=== PATIENT | male | born 1995 | race African-American/Black ===

== ENCOUNTER 2021-02-26 22:15 | Emergency (ER) | payer OTHER, SELFPAY ==
[2021-02-26 22:28] VITALS: PULSE 86; RESP 16; TEMP 36.8; O2SAT 100; BMI 43.4
[2021-02-26 22:59] VITALS: BP 150/90; PULSE 101; O2SAT 98
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
[2021-02-26] MEDS: Ibuprofen 800 MG TABLET PO (23:22)
--- NOTE | 2021-02-26 23:28 | PC.NURSE ---
PT ASSESSED BY DR. ELLER HARD COLLAR REMOVED BY DR ELLER.
== END 2021-02-26 23:30 | disposition home or self-care (01) ==
PROVIDERS: Emergency Provider Internal Medicine; PCP Physician Assistant
DX: S16.1XXA Strain of muscle, fascia and tendon at neck level, initial encounter (principal); M54.2 Cervicalgia; V43.52XA Car driver injured in collision with other type car in traffic accident, initial encounter; Y93.9 Activity, unspecified; Y92.410 Unspecified street and highway as the place of occurrence of the external cause; Y99.9 Unspecified external cause status
CPT/HCPCS: 99284

== ENCOUNTER 2021-03-05 10:34 | Outpatient (REF) | payer OTHER, SELFPAY ==
--- NOTE | ~2021-03-05 | XR_ITS ---
EXAMINATION: CERVICAL, THORACIC AND LUMBAR SPINE. CLINICAL INFORMATION: Diffuse back pain. COMPARISON: None TECHNIQUE: Lumbar spine 3 views. Dorsal spine 2 views. Cervical spine 3 views. FINDINGS: Lumbar spine: There is normal lumbar lordosis. The vertebral heights, alignment and disc heights are normal. No visible acute fracture, dislocation or subluxation seen. No lytic or sclerotic process. Dorsal spine: There is maintained thoracic kyphosis. The vertebral heights and alignment is normal. No visible acute fracture, dislocation or lytic process seen. The paravertebral soft tissues are normal. Cervical spine: There is normal cervical lordosis. The vertebral heights, alignment and disc heights are normal. No visible acute fracture, dislocation or lytic process seen. The prevertebral soft tissues are normal. XR/XR cervical spine 3V IMPRESSION: Unremarkable lumbar spine exam. Unremarkable dorsal spine exam Unremarkable cervical spine exam.
--- NOTE | ~2021-03-05 | XR_ITS ---
EXAMINATION: CERVICAL, THORACIC AND LUMBAR SPINE. CLINICAL INFORMATION: Diffuse back pain. COMPARISON: None TECHNIQUE: Lumbar spine 3 views. Dorsal spine 2 views. Cervical spine 3 views. FINDINGS: Lumbar spine: There is normal lumbar lordosis. The vertebral heights, alignment and disc heights are normal. No visible acute fracture, dislocation or subluxation seen. No lytic or sclerotic process. Dorsal spine: There is maintained thoracic kyphosis. The vertebral heights and alignment is normal. No visible acute fracture, dislocation or lytic process seen. The paravertebral soft tissues are normal. Cervical spine: There is normal cervical lordosis. The vertebral heights, alignment and disc heights are normal. No visible acute fracture, dislocation or lytic process seen. The prevertebral soft tissues are normal. XR/XR lumbar spine 2-3V IMPRESSION: Unremarkable lumbar spine exam. Unremarkable dorsal spine exam Unremarkable cervical spine exam.
--- NOTE | ~2021-03-05 | XR_ITS ---
EXAMINATION: CERVICAL, THORACIC AND LUMBAR SPINE. CLINICAL INFORMATION: Diffuse back pain. COMPARISON: None TECHNIQUE: Lumbar spine 3 views. Dorsal spine 2 views. Cervical spine 3 views. FINDINGS: Lumbar spine: There is normal lumbar lordosis. The vertebral heights, alignment and disc heights are normal. No visible acute fracture, dislocation or subluxation seen. No lytic or sclerotic process. Dorsal spine: There is maintained thoracic kyphosis. The vertebral heights and alignment is normal. No visible acute fracture, dislocation or lytic process seen. The paravertebral soft tissues are normal. Cervical spine: There is normal cervical lordosis. The vertebral heights, alignment and disc heights are normal. No visible acute fracture, dislocation or lytic process seen. The prevertebral soft tissues are normal. XR/XR thoracic spine 3V IMPRESSION: Unremarkable lumbar spine exam. Unremarkable dorsal spine exam Unremarkable cervical spine exam.
== END 2021-03-05 10:35 | disposition home or self-care (01) ==
LOC: HO.XRAY 10:34
PROVIDERS: PCP Physician Assistant; Visit Provider Chiropractor
DX: M99.01 Segmental and somatic dysfunction of cervical region (principal); M99.03 Segmental and somatic dysfunction of lumbar region
CPT/HCPCS: 72040; 72072; 72100

== ENCOUNTER 2022-12-29 12:09 | Emergency (ER) | payer OTHER, SELFPAY ==
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
[2022-12-29 12:39] VITALS: BP 121/71; PULSE 58; RESP 18; TEMP 36.7; O2SAT 97; BMI 40.4
[2022-12-29] MEDS: Cyclobenzaprine HCl 5 MG TABLET PO (15:07)
[2022-12-29] MEDS: Ketorolac Tromethamine 15 MG/ML VIAL IM (15:08)
== END 2022-12-29 15:14 | disposition home or self-care (01) ==
PROVIDERS: Emergency Provider Emergency Medicine
DX: S39.012A Strain of muscle, fascia and tendon of lower back, initial encounter (principal); R51.9 Headache, unspecified; M54.2 Cervicalgia; V43.62XA Car passenger injured in collision with other type car in traffic accident, initial encounter; Y93.9 Activity, unspecified; Y92.410 Unspecified street and highway as the place of occurrence of the external cause; Y99.9 Unspecified external cause status; Z79.899 Other long term (current) drug therapy
CPT/HCPCS: 70450; 96372; 99283; 99284; J1885

== ENCOUNTER 2023-02-16 00:41 | Emergency (ER) | payer OTHER, SELFPAY ==
--- NOTE | 2023-02-16 | ECG_ITS ---
Test Reason : CHESTPAIN Blood Pressure : / mmHG Vent. Rate : 054 BPM Atrial Rate : 054 BPM P-R Int : 146 ms QRS Dur : 092 ms QT Int : 386 ms P-R-T Axes : 054 038 022 degrees QTc Int : 366 ms Sinus bradycardia Otherwise normal ECG When compared with ECG of 14-DEC-2019 20:27, Vent. rate has decreased BY 39 BPM QT has shortened Referred By: Generic ED Physician Electronically Signed By:DORINA SMITH
--- NOTE | ~2023-02-16 | XR_ITS ---
EXAMINATION: XR CHEST CLINICAL INFORMATION: Chest pain COMPARISON: 12/14/2019 TECHNIQUE: Frontal view of the chest was obtained. FINDINGS: The lungs are clear with no focal consolidation. No evidence of pneumothorax, pulmonary edema, or pleural effusions. The cardiomediastinal silhouette is unremarkable. No acute osseous findings. XR/XR chest 1V IMPRESSION: No acute cardiopulmonary findings.
[2023-02-16 00:45] VITALS: BP 128/78; PULSE 79; RESP 20; TEMP 36.8; O2SAT 96; BMI 39.3
[2023-02-16 01:08] VITALS: BP 131/69; PULSE 67; RESP 17; TEMP 36.8; O2SAT 97
--- NOTE | 2023-02-16 01:12 | ED.CHESTPAIN ---
HPI - Chest Pain General Chief Complaint: Chest Pain Stated Complaint: heart/chest pain Time Seen by Provider: 02/16/23 01:11 Source: patient Mode of arrival: ambulatory History of Present Illness HPI narrative: 27-year-old male who presents with transient left chest pulse a iqbal all smoking marijuana and eating sandwich. Patient states that that sensation has resolved and was not associated with any shortness of breath/dizziness/nausea. Related Data Previous Rx's Medication Instructions Recorded ibuprofen 600 mg tablet 600 mg PO Q6H PRN pain #20 tabs 02/26/21 cyclobenzaprine 5 mg tablet 5 mg PO TID PRN muscle spasm 7 12/29/22 days #21 tabs naproxen 500 mg tablet 500 mg PO BID 7 days #14 tabs 12/29/22 Allergies Allergy/AdvReac Type Severity Reaction Status Date / Time SEASONAL ALLERGIES Allergy Intermediate UNKNOWN Uncoded 12/29/22 12:41 Review of Systems Review of Systems: Pertinent positives and negatives as stated in HPI [facility] Past Medical History Source: nursing notes reviewed Social History Social History Use of substances other than those prescribed or required for medical reasons: Yes Substance Use Type: Marijuana Substance Use Frequency: Daily Physical Exam Vital Signs: Vital Signs: Last Vital Signs Temp 98.2 F 02/16/23 01:08 Pulse 67 02/16/23 01:08 Resp 17 02/16/23 01:08 BP 131/69 02/16/23 01:08 Pulse Ox 97 02/16/23 01:08 O2 Del Method Room Air 02/16/23 01:08 BMI result Body Mass Index 39.3 VITAL SIGNS: Reviewed. GENERAL: Well developed, well nourished, in no acute distress. HEAD: Normocephalic/atraumatic EYES: PERRLA, EOMI EARS: Ext canals without abnormality NOSE: Nares patent bilateral OROPHARYNX: no oral lesions noted, posterior pharynx clear NECK: Supple, no adenopathy LUNGS: Normal breath sounds. No adventitious sounds or accessory muscle use. SpO2<97> CARDIOVASCULAR: Regular rate and rhythm without noted murmurs ABDOMEN: Soft, non-tender, non-distended with bowel sounds. MUSCULOSKELETAL: No tenderness, deformities, or effusions noted on gross inspection. EXTREMITIES: No cyanosis, clubbing or edema. SKIN: Inspection of the skin reveals no rashes NEUROLOGIC: Alert and oriented x 4. Strength and sensation to light touch were grossly intact x 4. Medical Decision Making Medical Decision Making [facility] Narrative: 27-year-old male with history and clinical presentation, DDX: Musculoskeletal, low clinical suspicion for primary ACS/pneumothorax/pneumonia and no evidence to suggest acid reflux. Suspect that this was related with social activity of marijuana smoking. I reviewed all investigations and hematologic indices are without leukocytosis or left shift, there is no anemia or thrombocytopenia. Chemistry indices are negative for FARIBA your electrolytes/liver enzyme abnormalities and high sensitivity troponin is undetectable. Chest x-ray without infiltrate and otherwise my interpretation is in agreement with radiology's impression. On EKG there is a sinus bradycardia without ischemic changes. My interpretation is this may have been associated with patient's inhalation of the marijuana in there are no acute findings to suggest pneumonia/pneumothorax/ischemic cardiac etiology. He is otherwise discharged. Differential Diagnosis Differential Diagnoses: The differential diagnosis associated with the presentation includes Please see the discussion above Admission/Observation Consideration of admission/observation: Escalation of care including admission/observation considered Please see the discussion above Lab Data [facility] Lab Attestation statement: I reviewed the patient's lab results. Please see the discussion above 02/16/23 01:46 02/16/23 01:46 Labs: Lab Results 02/16/23 Range/Units 01:46 WBC 7.1 (4.8-10.8) X10*3/uL RBC 4.76 (4.60-5.80) X10*6/uL Hgb 15.2 (14.0-18.0) g/dl Hct 42.8 (42.0-52.0) % MCV 89.9 (80.0-98.0) fL MCH 31.9 (27.0-33.0) pg MCHC 35.5 (31.0-36.0) g/dl RDW 11.1 (11.0-16.0) % Plt Count 257 (160-400) X10*3/uL MPV 9.3 L (9.4-12.4) fL Absolute Nucleated RBC 0.000 (0.0-0.012) X10*3/uL Nucleated RBC % (auto) 0.0 (0.0-0.2) /100WBC Sodium 138 (135-145) mmol/L Potassium 3.3 (3.3-5.1) mmol/L Chloride 108 (96-108) mmol/L Carbon Dioxide 21 L (22-29) mmol/L Anion Gap 12 (12-20) BUN 9 (9-16) mg/dL Creatinine 0.76 (0.5-1.4) mg/dL Estim Creat Clear Calc 202.9 Estimated GFR > 60 Random Glucose 126 H (60-115) mg/dL Calcium 9.4 (8.4-10.2) mg/dL Total Bilirubin 0.7 (0.0-1.0) mg/dL AST 16 (5-37) U/L ALT 27 (0-40) U/L Alkaline Phosphatase 83 (39-117) U/L Troponin I High Sens < 2.7 (<3.5-35.0) ng/L Total Protein 7.2 (6.5-8.0) g/dL Albumin 4.0 (3.5-5.0) g/dL Independent Interpretation I performed an independent interpretation of an: EKG Interpretation: Sinus bradycardia, HR-54, no STEMI, SC/QRS/QTC is within normal limits. Radiology Impression Discussion of test interpretation with radiology: I have reviewed the radiologist's reading. Radiologist Impression: Please see the discussion above External Record Review External record reviewed: Outpatient record, Prior outpatient labs and Prior outpatient radiology Discharge Plan Discharge Clinical Impression: Atypical chest pain Patient Disposition: Home, Self-Care Instructions: Noncardiac Chest Pain (ED) Additional Instructions: Return to the ER for any worsening of symptoms. Prescriptions: No Action ibuprofen 600 mg tablet 600 mg PO Q6H PRN (Reason: pain) Qty: 20 0RF naproxen 500 mg tablet 500 mg PO BID 7 Days Qty: 14 0RF cyclobenzaprine 5 mg tablet 5 mg PO TID PRN (Reason: muscle spasm) 7 Days Qty: 21 0RF
[2023-02-16 01:53] LABS: Hematocrit 42.8 % (42.0-52.0); Hemoglobin 15.2 g/dl (14.0-18.0); Mean Corpuscular HGB Conc 35.5 g/dl (31.0-36.0); Mean Corpuscular Hemoglobin 31.9 pg (27.0-33.0); Mean Corpuscular Volume 89.9 fL (80.0-98.0); Mean Platelet Volume 9.3 fL (9.4-12.4); Platelet Count 257 X10*3/uL (160-400); Red Blood Count 4.76 X10*6/uL (4.60-5.80); Red Cell Distribution Width 11.1 % (11.0-16.0); White Blood Count 7.1 X10*3/uL (4.8-10.8)
[2023-02-16 02:18] LABS: Troponin-I High Sensitivity < 2.7 ng/L (<3.5-35.0)
[2023-02-16 02:32] LABS: Alanine Aminotransferase 27 U/L (0-40); Alkaline Phosphatase 83 U/L (39-117); Anion Gap 12 (12-20); Aspartate Amino Transferase 16 U/L (5-37); Bilirubin Total 0.7 mg/dL (0.0-1.0); Blood Urea Nitrogen 9 mg/dL (9-16); Calcium 9.4 mg/dL (8.4-10.2); Carbon Dioxide 21 mmol/L (22-29); Chloride 108 mmol/L (96-108); Creatinine Clr Calc Pharmacy 202.9; Estimated Glomerular Filt Rate > 60; Glucose Random 126 mg/dL (60-115); Potassium 3.3 mmol/L (3.3-5.1); Sodium 138 mmol/L (135-145); Total Protein 7.2 g/dL (6.5-8.0)
--- NOTE | 2023-02-16 03:23 | PC.NURSE ---
Reviewed discharge instructions with pt, pt verbalized understanding, no sob or chest pain, Notified ALECIA Espinal.
== END 2023-02-16 03:25 | disposition home or self-care (01) ==
PROVIDERS: Emergency Provider Student in an Organized Health Care Education/Training Program
DX: Z79.899 Other long term (current) drug therapy (principal)
CPT/HCPCS: 36415; 71045; 80053; 84484; 85027; 93005; 99283; 99284